=== PATIENT | male | born 1955 | race Caucasian/White ===

== ENCOUNTER 2016-11-10 08:09 | Emergency (ER) | payer OTHER ==
[2016-11-10 08:31] VITALS: BP 141/82
--- NOTE | 2016-11-10 09:35 | UC ---
Ade Jose Matthew, [facility] 11[facility]10[facility]16 at 0918 . Respiratory Complaint HPI - HPI Summary HPI Summary: Nurse's Note; Since 3 days, cough, frontal headache, pressure around ears. Having chills. Note; Vital Signs Stable , 99.2F temperature; pulse oxygen 100%, 5/10 pain, non-smoker, rare alcohol, previous visit non-contributory for present complaint , no allergies. PMHx includes hypothyroidism In Room Note; A 61 y/o male presents to [facility] with a cough for the past 3 days. Associated symptoms include difficulty sleeping, fever, ear pain, diaphoresis, frontal headache - described as pressure, rhinorrhea, and sinus pressure. The patient denies SOB, nausea, vomiting, and diarrhea. He has minimal chest pain with cough only. Recent family members have been ill. The patient has not been hospitalized in the past. His last Abx use was ~a year ago for bronchitis. 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 - History of Current Complaint Chief Complaint: UC Stated Complaint: COUGH Hx Obtained From: Patient Onset/Duration: Sudden Onset, Lasting Days, Still Present Timing: Constant Severity Initially: Moderate Severity Currently: Moderate Pain Intensity: 5 Pain Scale Used: 0-10 Numeric Character: Cough: Productive Associated Signs And Symptoms: Positive: Fever, Nasal Congestion, Sinus Discomfort - Allergies/Home Medications Allergies/Adverse Reactions: Allergies Allergy/AdvReac Type Severity Reaction Status Date / Time No Known Allergies Allergy Verified 11/10/16 08:26 PMH/Surg Hx/FS Hx/Imm Hx Endocrine History Of: Reports: Thyroid Disease - Surgical History Surgical History: Yes Surgery Procedure, Year, and Place: hiatal hernia - Family History Known Family History: Negative: Cardiac Disease, Diabetes Family History: No FHx of CA - Social History Occupation: Employed Full-time Lives: With Family Alcohol Use: Rare Substance Use Type: None Smoking Status (MU): Never Smoked Tobacco - Immunization History Most Recent Influenza Vaccination: fall 2015 Review of Systems Constitutional: Fever - last night, Other - Difficulty sleeping; Diaphoresis ENT: Ear Ache, Nasal Discharge, Other - sinus pressure Respiratory: Cough - produtive Cardiovascular: Negative Gastrointestinal: Negative Genitourinary: Negative Motor: Negative Neurovascular: Negative Musculoskeletal: Negative Neurological: Headache - frontal pressure Psychological: Negative All Other Systems Reviewed And Are Negative: Yes Physical Exam Triage Information Reviewed: Yes Appearance: Well-Appearing, No Pain Distress, Well-Nourished Vital Signs: Initial Vital Signs Temp 99.2 F 11/10/16 08:27 Pulse 80 11/10/16 08:27 Resp 16 11/10/16 08:27 BP 141/82 11/10/16 08:27 Pulse Ox 100 11/10/16 08:27 Vital Signs Reviewed: Yes Eyes: Positive: Conjunctiva Clear ENT: Positive: Hearing grossly normal. Negative: Pharyngeal erythema, Tonsillar swelling, Tonsillar exudate, Muffled/hoarse voice Neck: Positive: Supple, No Lymphadenopathy Respiratory: Positive: Chest non-tender, No respiratory distress, Rhonchi - SCATTERED Cardiovascular: Positive: RRR, No Murmur Abdomen Description: Positive: Nontender, No Organomegaly, Soft Bowel Sounds: Positive: Present Musculoskeletal: Positive: Strength Intact Neurological: Positive: Alert Psychological: Positive: Age Appropriate Behavior Skin: Negative: rashes UC Diagnostic Evaluation - Laboratory O2 Sat by Pulse Oximetry: 100 Respiratory Course/Dx - Course Course Of Treatment: Discussed alternate treatment with the patient. He opted for Abx, azithromycin and robitussin with codeine. He chose not to have albuterol or prednisone. ISTOP reference number [id number]; No recent opioid use noted. - Differential Dx/Diagnosis Provider Diagnoses: Bronchitis with bronchospasms Discharge - Discharge Plan Condition: Stable Disposition: HOME Prescriptions: Azithromycin TAB* [Zithromax TAB (Z-DI) 250 mg #6 tabs] 2 tab PO .TODAY, THEN 1 DAILY #1 di guaiFENesin/CODIEN 100MG-10MG* [Robitussin AC 100Mg-10Mg*] 5 ml PO Q4H #60 udc MDD 4 tsp Patient Education Materials: Acute Bronchitis (ED), Bronchospasm (ED) Referrals: Bernabe Salazar MD [Primary Care Provider] - Additional Instructions: WE DISCUSSED: You have bronchitis and your cough is also related to irritated lung and bronchospasm. Use zithromax and robitussin with codeine for the cough. Also: COUGH, CONGESTION of CHEST, SINUSES OR EARS: The most important goal is to liquefy all the phlegm and get it out of your head and chest. Any illness causing cough, congestion, sore throat or sinus discomfort can be helped by doing the following: STAND UNDER SHOWER STREAM TO LOOSEN SECRETIONS. STAY AWAY FROM ANY SMOKE OR IRRITANTS. WHAT ELSE CAN HELP RELIEVE YOUR SYMPTOMS: GENERAL TYPES OF MEDICINE THAT MAY HELP DECONGESTANTS: helps relieve stuffiness and clears sinuses. Pseudoephedrine ( Sudafed or generic) is effective but you need to ask the pharmacist for it because it may be kept behind the counter. ANTIHISTAMINES: are NOT helpful in many colds and flus because they can worsen sore throat, dry eyes and mouth and cause drowsiness. Examples are diphenhydramine, doxylamine and chlorpheniramine. They can help dry you out if you are having profuse, clear drainage from the nose. EXPECTORANTS: helps thin mucous in the nose and chest, making it easier to clear the fluid out. Expectorants are in most combination cough/cold remedies and should be taken with plenty of water. Guaifenesin is the most common expectorant and it comes in pill or liquid form. Mucinex is an extended release form of guaifenesin. COUGH SUPPRESANT: reduces the body's cough reflex. Dextromethorphan is in over the counter products, but sometimes narcotics such as codeine or hydrocodone are used to suppress cough. SPECIFIC MEDICATIONS: The most important goal is to liquefy all the phlegm and get it out of your head and chest: The following medicines (in prescription form or you can buy them without prescription) may help: To help with cough: DEXTROMETHORPHAN (Vicks, Robitussin, Nyquil and other brands) To help break up phlegm: GUAIFENESIN (Mucinex, Robitussin, other brands) To help clear congestion: PSEUDOEPHEDRINE (Sudafed, Dimetapp, other brands) TRY TO CLEAR NOSE: AFRIN NASAL SPRAY: 2-3 SPRAYS PER NOSTRIL, TWICE A DAY FOR TWO DAYS ONLY. USEFUL WAYS TO FEEL BETTER WITHOUT MEDICATIONS: STAND UNDER SHOWER STREAM TO LOOSEN SECRETIONS. USE A VAPORIZOR. STAY AWAY FROM ANY SMOKE OR IRRITANTS. USE SALINE NASAL SPRAY TO KEEP FLOW OF MUCOUS FROM NOSTRILS AND SINUSES. CONSIDER USING NETI POT TO HELP WITH ALLERGIES AND CONGESTION IN THE NOSE. USE THIS THREE TIMES A WEEK. YOU CAN GET THIS AT [facility] IN [place] OR VARIOUS DRUGSTORES. DRINK LOTS OF WARM FLUIDS USEFUL HOME REMEDIES: WARM WATER GARGLES, WITH TSP OF SALT PER 8 OUNCES OF WATER, GARGLE FOR A FEW SECONDS AND SPIT OUT; GARGLE AND SPIT OUT; EVERY THREE HOURS. AND/OR: WARM WATER OR TEA, HONEY AND LEMON; 2-3 CUPS A DAY. FOR SORE THROAT: KEEP THROAT MOIST WITH LOZENGES; TEA AND HONEY. USE WARM WATER GARGLES 3-4 TIMES A DAY. FOLLOW UP: RE-CHECK IN 1O DAYS, NEEDED, IF YOU ARE NOT IMPROVING. RETURN HERE OR SEE YOUR PHYSICIAN. RE-CHECK SOONER IF INCREASED PAIN OR TEMPERATURE. The documentation as recorded by the Ade mackenzie Matthew accurately reflects the service I personally performed and the decisions made by , Yury Donald MD.
== END 2016-11-10 09:35 | disposition home or self-care (01) ==
LOC: UCEAST 08:09
DX: J20.9 Acute bronchitis, unspecified (principal)
CPT/HCPCS: 99212; G0463

== ENCOUNTER 2018-11-12 08:18 | Day surgery (SDC) | payer OTHER ==
[~2018-11-12 08:18] MED LIST: Acetaminophen TAB* 325 MG PO PRN; Buffered Lidocaine 1% SYRIN* 1 ML/SYRINGE INTRADERM ONE
[2018-11-12] MEDS ORDERED: Midazolam* 1 MG/ML 2 ML VIAL (2 MG) ONE (09:33)
[2018-11-12 11:03] VITALS: BP 149/93
[2018-11-12] MEDS ORDERED: Neomycin/Polymy/Dex OPHTH.OIN* 3.5 GM ONE (11:06)
[2018-11-12] MEDS ORDERED: Phenylephrine 2.5% OPTH.SOL* 2 ML BTL ONE (11:06)
[2018-11-12] MEDS ORDERED: Ketorolac 0.5% OPHTH (NF) 0.5 % 5 ML BTL ONE (11:06)
[2018-11-12] MEDS ORDERED: Cyclopentolate 1% OPTH.SOL* 2 ML BTL ONE (11:06)
[2018-11-12] MEDS ORDERED: acetaZOLAMIDE TAB* 250 MG ONE (11:06)
[2018-11-12] MEDS ORDERED: Povidone Iodine 5% OPTH* 30 ML BTL ONE (11:06)
[2018-11-12] MEDS ORDERED: Lidocaine 1%* 5 ML VIAL ONE (11:06)
[2018-11-12] MEDS ORDERED: Tetracaine 0.5% OPTH.SOL 4 ML* 1 DROP BTL ONE (11:06)
[2018-11-12] MEDS ORDERED: Tropicamide 1% OPTH.SOL* BTL ONE (11:06)
--- NOTE | 2018-11-12 13:01 | OP ---
DATE OF OPERATION: 11/12/18 [facility] DATE OF : 55 SURGEON: Montrell Moss MD. ANESTHESIA: Monitored anesthesia care. PREOPERATIVE DIAGNOSIS: Cataract, left eye with astigmatism. POSTOPERATIVE DIAGNOSIS: Cataract, left eye with astigmatism. OPERATIVE PROCEDURE: Extracapsular cataract extraction of the left eye with intraocular lens implant. IMPLANT: SN6AT6 16.0 diopter lens at 79 degrees. DESCRIPTION OF PROCEDURE: The patient was given phenylephrine 2.5% and cyclopentolate 1% eye drops to the operative eye in the preoperative area. Corneal markings were made at 0 and 180 degrees with the patient seated in the upright position to assist toric lens placement. The patient was taken to the operating room where a time-out was taken to identify the correct patient, site , and side of surgery. The patient's left eye was prepped and draped in the usual sterile fashion with 5% Betadine. A second time-out was taken to verify the correct patient, side, and site of surgery and correct lens implant. A lid speculum was placed to the left eye. Corneal markings were placed at 79 degrees. A 1-mm paracentesis blade was used to make a clear corneal incision in the inferior temporal position. Preservative-free 1% lidocaine was injected into the anterior chamber. DisCoVisc was then injected into the anterior chamber. A 2.75 mm keratome blade was used to make a triplanar incision at the superior temporal position. A cystotome initiated a capsulorrhexis which was completed with Utrata forceps in a continuous and curvilinear manner. Hydrodissection of the lens was performed with BSS on a cannula. The lens could be spun in the capsular bag. The phacoemulsification handpiece was used with a zakrfy-[id number]-nllgbeg technique to remove the nucleus. The I/A handpiece then removed the residual cortical lens material. Provisc was then injected to inflate the capsular bag. The ORA was used to then recalculate the patient's astigmatism and axis. The planned SN6AT6 16.0 diopter lens was then injected into the capsular bag and rotated to 79 degrees. The residual Provisc was then removed from the eye with the I/A handpiece. The ORA was again used to confirm correct toric lens placement. The corneal incisions were hydrated and no leaks occurred at physiologic pressure around 20 mmHg per palpation. The lid speculum was removed and drapes were removed. Maxitrol ointment was placed to the surface of the operative eye. An adhesive patch and shield was then placed on the operative eye. The patient was taken to the postoperative area in stable condition. [id number]/[facility] #: [id number] MTDD
== END 2018-11-12 10:54 | disposition home or self-care (01) ==
LOC: OREAST 08:18
PROVIDERS: ATTEND Student in an Organized Health Care Education/Training Program
DX: H25.12 Age-related nuclear cataract, left eye (principal); H52.202 Unspecified astigmatism, left eye; E03.9 Hypothyroidism, unspecified
CPT/HCPCS: A9270-GY; J2250; V2787

== ENCOUNTER 2018-11-19 07:38 | Day surgery (SDC) | payer OTHER ==
[~2018-11-19 07:38] MED LIST changes: -Buffered Lidocaine 1% SYRIN* 1 ML/SYRINGE INTRADERM ONE
[2018-11-19] MEDS ORDERED: Midazolam* 1 MG/ML 2 ML VIAL (2 MG) ONE (09:31)
[2018-11-19 10:12] VITALS: BP 164/93
[2018-11-19] MEDS ORDERED: Ketorolac 0.5% OPHTH (NF) 0.5 % 5 ML BTL ONE (10:38)
[2018-11-19] MEDS ORDERED: Lidocaine 1%* 5 ML VIAL ONE (10:38)
[2018-11-19] MEDS ORDERED: acetaZOLAMIDE TAB* 250 MG ONE (10:38)
[2018-11-19] MEDS ORDERED: Cyclopentolate 1% OPTH.SOL* 2 ML BTL ONE (10:38)
[2018-11-19] MEDS ORDERED: Phenylephrine 2.5% OPTH.SOL* 2 ML BTL ONE (10:38)
[2018-11-19] MEDS ORDERED: Neomycin/Polymy/Dex OPHTH.OIN* 3.5 GM ONE (10:38)
[2018-11-19] MEDS ORDERED: Povidone Iodine 5% OPTH* 30 ML BTL ONE (10:38)
[2018-11-19] MEDS ORDERED: Tetracaine 0.5% OPTH.SOL 4 ML* 1 DROP BTL ONE (10:38)
[2018-11-19] MEDS ORDERED: Tropicamide 1% OPTH.SOL* BTL ONE (10:38)
--- NOTE | 2018-11-19 11:19 | OP ---
DATE OF OPERATION: 11/19/18 [facility] DATE OF : 55 SURGEON: Montrell Moss MD ANESTHESIA: Monitored anesthesia care. PRE-OP DIAGNOSIS: Cataract, right eye with astigmatism. POST-OP DIAGNOSIS: Cataract, right eye with astigmatism. OPERATIVE PROCEDURE: Extracapsular cataract extraction of the right eye with intraocular lens implant. IMPLANT: SN6AT3 14.5 diopter lens right eye at 66 degrees. COMPLICATIONS: None. DESCRIPTION OF PROCEDURE: The patient was given phenylephrine 2.5% and cyclopentolate 1% eye drops to the operative eye in the preoperative area. The patient was seated in the upright position. Corneal markings were placed at 0 and 180 degrees. The patient was taken to the operating room where a time- out was taken to identify the correct patient, site, and side of surgery. The patient's right eye was prepped and draped in the usual sterile fashion with 5% Betadine. A second time-out was taken to verify the correct patient, side, and site of surgery and correct lens implant. A lid speculum was placed to the right eye. Corneal markings were placed at 66 degrees with a Marrero marker. A 1-mm paracentesis blade was used to make a clear corneal incision in the superior temporal position. Preservative-free 1% lidocaine was injected in the anterior chamber. DisCoVisc was then injected to inflate the anterior chamber. A 2.75 mm keratome blade was used to make a triplanar incision at the inferior temporal position. A cystotome initiated a capsulorrhexis, which was completed with Utrata forceps in a continuous and curvilinear manner. Hydrodissection of the lens was performed with BSS on a cannula. The lens could be spun in the capsular bag. The phacoemulsification handpiece was used with a muatuk-[id number] technique to remove the nucleus. The I/A handpiece then removed the residual cortical lens material. Provisc was then injected to inflate the capsular bag. The ORA was used to confirm lens power and predicted position. The planned SN6AT3 14.5 diopter lens was then injected into the capsular bag and rotated to 66 degrees. The residual Provisc was then removed from the eye with the I/A handpiece. The corneal incisions were hydrated and no leaks occurred at physiologic pressure around 20 mmHg per palpation. The lens was confirmed to be in correct orientation. The lid speculum was removed and drapes removed. Maxitrol ointment was then placed to the surface of the operative eye. An adhesive patch and shield was then placed on the operative eye. The patient was taken to the postoperative area in stable condition. [id number]/[facility] #: [id number] MTDD
== END 2018-11-19 10:18 | disposition home or self-care (01) ==
LOC: OREAST 07:38
PROVIDERS: ATTEND Student in an Organized Health Care Education/Training Program
DX: H25.11 Age-related nuclear cataract, right eye (principal); H52.201 Unspecified astigmatism, right eye; Z96.1 Presence of intraocular lens
CPT/HCPCS: A9270-GY; J2250; V2787